=== PATIENT | male | born 1990 | race Caucasian/White ===

== ENCOUNTER 2025-03-06 16:10 | Emergency (ER) | payer OTHER, SELFPAY ==
--- NOTE | ~2025-03-06 | XR_ITS ---
HISTORY: 4th rt toe pain, swelling and bruising, kicked a box COMPARISON: None TECHNIQUE: 3 views of the right foot were performed FINDINGS: No acute fracture or dislocation is appreciated. No significant degenerative disease is noted. The base of the fifth metatarsal is intact. No calcaneal spur is noted. No significant soft tissue swelling is present. IMPRESSION: No acute fracture. Reviewed, dictated and finalized at location A. IMPRESSION: No acute fracture.
--- NOTE | 2025-03-06 16:11 | ED_ITS ---
HPI - Extremity Injury (Lower) General Stated Complaint: toe injury Time Seen by Provider: 03/06/25 16:11 Source: patient Mode of arrival: ambulatory Limitations: no limitations History of Present Illness HPI Narrative: Patient is a 34-year-old male who presents with right 4th toe pain after accidentally tripping on box of toys and kicking the top corner. Patient reports tenderness on palpation and bruising. Incident happened 2 nights ago. Patient still able ambulate with mild pain. Related Data Allergies Allergy/AdvReac Type Severity Reaction Status Date / Time No Known Allergies Allergy Verified 03/06/25 17:16 Review of Systems Review of Systems: All systems reviewed & are unremarkable except as noted in HPI and below Constitutional: Constitutional: Denies body ache(s), Denies chills, Denies fatigue, Denies fever(s), Denies headache(s), Denies malaise and Denies weakness Eyes: Eyes: Denies blurry vision, Denies irritation and Denies loss of vision ENT: Denies otalgia, Denies headache(s), Denies nasal discharge, Denies sinus pain and Denies sore throat Cardiovascular: Cardiovascular: Denies chest pain, Denies irregular heart rhythm and Denies dyspnea Respiratory: Respiratory: Denies dyspnea Gastrointestinal: Gastrointestinal: Denies abdominal pain, Denies melena, Denies hematochezia, Denies diarrhea, Denies nausea and Denies vomiting Musculoskeletal: Musculoskeletal: Denies back pain, Denies myalgias and Reports arthralgias Integumentary/Breasts: Skin/Breast: Denies pruritus and Denies rash Neurologic: Denies headache(s), Denies loss of vision and Denies weakness Psychiatric: Psychiatric: Reports no additional psychiatric complaints Endocrine: Endocrine: Denies fatigue PMFSH Comments At time of signature, agree with nursing past medical, surgical, social and family history. There is no relevant family history pertinent to the presenting complaint. Exam Const: General: cooperative, healthy appearing, comfortable, no acute distress and well nourished Nutritional Appearance: well nourished Orientation/consciousness: patient oriented x3 Limitations: no limitations HENMT: Head: normal to inspection, normocephalic and atraumatic Ears: hearing grossly normal bilaterally and external ears normal Face/Nose/Sinus: Normal external nose present, normal facial exam and face symmetric Face and sinus: normal facial exam and face symmetric Mouth: Yes lip normal Eyes: General: appearance normal, both eyes and all related structures Alignment and Position: alignment normal and position normal Periorbital: periorbital findings normal Eyelids: eyelids normal Pupils: Equal, round and reactive pupils present EOM: EOMs intact bilaterally Neck: Neck: normal visual inspection, full ROM and supple Chest: Chest palpation & inspection: normal inspection of the chest Resp: Effort & Inspection: normal respiratory effort and able to speak in complete sentences Auscultation: clear to auscultation bilaterally Cardio: Rate: regular rate Rhythm: regular rhythm Heart sounds: S1 normal heart sound present and S2 normal heart sound present GI: Inspection: normal to inspection Skin: General skin exam: normal color and no rashes or lesions noted Neuro: General: patient oriented x3 and moves all extremities Cranial nerves: Yes Equal, round and reactive pupils present Speech: normal speech Gait exam (Neuro): Normal gait present Extrem: General: normal to inspection, full ROM and no edema Right lower extremity: foot Details: normal capillary refill, tenderness Location: of another digit Location: the 4th digit and along the entire digit, toes with normal ROM, ecchymosis dorsal 4th toe Details: single, vascular exam Details: dorsalis pedis pulse present and normal capillary refill and tendon exam Details: active flexion normal Location: of all toes and active extension normal Location: of all toes Psych: Appearance: grossly normal and well kempt Mental Status: mental status grossly normal Speech and movement: Normal speech and movement present Affect: normal affect Attitude: cooperative Thought process: Normal thought process present Course Course Emergency Course: Patient is aware of diagnosis, understands and agrees to treatment plan. Anticipatory guidance given. Patient agrees to follow-up as directed and is aware of reasons to seek care at the emergency department. Portions of this record may have been created with voice recognition software Level of Care: Express Care Visit Vital Signs Vital signs: Reviewed MDM - Extremity Injury (Lower) MDM Narrative Medical decision making narrative: X-ray showed minutes fracture. Toe with ecchymosis but able to bend normally. Anthony-taped toe recommendations. Pt well hydrated appearing, in no respiratory distress, hemodynamically stable. Recommend supportive care. The patient is stable at time of discharge the clinical impression was discussed and the patient was given the opportunity to ask questions, which were addressed as completely as possible given the information available at present. Anticipatory guidance and return to care precautions were discussed and the importance of primary care follow-up was stressed and encouraged. The patient voiced understanding of the plan, indications to return, and the need for follow-up. Exam findings show no acute concerns or changes Patient is appropriate for outpatient treatment and follow-up. Differential Diagnosis Differential diagnosis: Likely fracture of toe and other (Toe strain, contusion) Imaging Data Radiologist's impression: HISTORY: 4th rt toe pain, swelling and bruising, kicked a box COMPARISON: None TECHNIQUE: 3 views of the right foot were performed FINDINGS: No acute fracture or dislocation is appreciated. No significant degenerative disease is noted. The base of the fifth metatarsal is intact. No calcaneal spur is noted. No significant soft tissue swelling is present. IMPRESSION: No acute fracture. Discharge Plan Discharge Clinical Impression: Contusion of toe of right foot Qualifiers: Encounter type: initial encounter Toe: lesser toe Damage to nail status: without damage Qualified Code(s): S90.121A - Contusion of right lesser toe(s) without damage to nail, initial encounter Patient Disposition: Home Condition: Stable Instructions: Foot Contusion (ED) Additional Instructions: Xray showed no fracture. Minimize activities that aggravate the condition The RICE protocol. Follow the RICE protocol as soon as possible after your injury: Rest your foot by not walking on it. Ice should be immediately applied to keep the swelling down. It can be used for 20 to 30 minutes, three or four times daily. Do not apply ice directly to your skin. Compression dressings, bandages or yessenia-wraps will immobilize and support your injured foot. Elevate your foot above the level of your heart as often as possible during the first 48 hours. Medication: Nonsteroidal anti-inflammatory drugs (NSAIDs) such as ibuprofen and naproxen can help control pain and swelling. Because they improve function by both reducing swelling and controlling pain, they are a better option for mild sprains than narcotic pain medicines. Please schedule a follow-up visit with your personal physician for further evaluation and treatment within 1week OR If your symptoms persist, change or worsen significantly before you can contact your personal physician then please, without delay, go to the emergency department for further evaluation. Your blood pressure was elevated above 120/80 today at Urgent Care. This puts you above the threshold for follow up visit with a primary care provider. High blood pressure does not usually cause any symptoms, however it may lead to kidney failure, stroke, heart disease just to name a few if untreated . Many people are anxious when seeing a provider or nurse. As a result, you are not diagnosed with hypertension at this time unless your blood pressure is persistently high at two office visits at least one week apart. Some things that can help lower blood pressure are lifestyle modifications, such as light exercise, decreased salt in diet, and weight loss. It is important to follow up with a PCP about this within 1 week. Patient Language: Persian Follow-up/Referrals: Sony Moise MD [Physician] - 3 Days ([facility] care) Stand Alone Forms: Work/School Release IP Time of Disposition: 17:18
[2025-03-06 16:20] VITALS: BP 151/86; PULSE 71; RESP 16; TEMP 36.3; O2SAT 99
--- OUTSIDE RECORDS SUMMARY | 2025-03-06 17:38 | XMS_ITS | Continuity of Care Document ---
Author Name [facility] Organization [facility] Care Team Providers Care Parts Administrator Name Role Phone [facility] Unavailable Unavailable Immunizations Combined list of available immunizations from the Department of Defense and Veterans Affairs facilities. Immunization Series Date Given Administered By Site Reaction Lot Number CVX Code Drug Cylinder Devalver Status Comments Source influenza, injectable, quadrivalent- pf 2020 [id number] 150 sanofi pasteur complet ed influenza , injectabl e, quadrival ent-pf 10/27/21 Given Ambulat ory Pharmac y influenza, injectable, quadrivalent- pf 2020 [id number] 150 Seqirus complet ed influenza , injectabl e, quadrival ent-pf 12/01/20 Given Ambulat ory Pharmac y typhoid Vi capsular polysaccharid e vac 2018 [id number] sanofi pasteur complet ed typhoid Vi capsular polysacch aride vac 07/30/19 Given Ambulat ory Pharmac y influenza, injectable, quadrivalent 2018 [id number] 158 Seqirus complet ed influenza , injectabl e, quadrival ent 07/30/19 Given Ambulat ory Pharmac y influenza, injectable, quadrivalent 2018 [id number] 158 Seqirus complet ed influenza , injectabl e, quadrival ent 01/01/19 Given Ambulat ory Pharmac y poliovirus vaccine, inactivated 2016 [id number] 10 sanofi pasteur complet ed polioviru s vaccine, inactivat ed 08/01/17 Given Ambulat ory Pharmac y influenza, injectable, quadrivalent- pf 2016 [id number] 150 GlaxoSmithKli ne complet ed influenza , injectabl e, quadrival ent-pf 08/01/17 Given Ambulat ory Pharmac y anthrax vaccine 2016 [id number] Emergent Biosolutions complet ed anthrax vaccine 06/27/17 Given Ambulat ory Pharmac y typhoid Vi capsular polysaccharid e vac 2016 [id number] sanofi pasteur complet ed typhoid Vi capsular polysacch aride vac 06/27/17 Given Ambulat ory Pharmac y influenza, seasonal, injectable-pf 2015 [id number] Seqirus complet ed influenza , seasonal, injectabl e-pf 09/15/16 Given Ambulat ory Pharmac y anthrax vaccine 2015 [id number] 24 Emergent Biosolutions complet ed anthrax vaccine 06/18/16 Given Ambulat ory Pharmac y influenza, live, intranasal,qu adrivalent 2014 [id number] Medimmune Inc comple t ed influenza , live, intranasa l,quadriv alent 09/30/15 Given Ambulat ory Pharmac y anthrax vaccine 2014 [id number] Emergent [employer] complet ed anthrax vaccine 12/06/14 Given Ambulat ory Pharmac y influenza, injectable, quadrivalent 2013 [id number] ID Biomedical comple t ed influenza , injectabl e, quadrival ent 10/28/14 Given Ambulat ory Pharmac y typhoid Vi capsular polysaccharid e vac 2013 [id number] sanofi pasteur complet ed typhoid Vi capsular polysacch aride vac 10/28/14 Given Ambulat ory Pharmac y influenza, live, intranasal,qu adrivalent 2012 [id number] 149 MediDealupa Inc comple t ed influenza , live, intranasa l,quadriv alent 09/24/13 Given Ambulat ory Pharmac y anthrax vaccine 2011 [id number] Emergent Biosolutions complet ed anthrax vaccine 11/04/12 Given Ambulat ory Pharmac y typhoid Vi capsular polysaccharid e vac 2011 [id number] sanofi pasteur complet ed typhoid Vi capsular polysacch aride vac 09/25/12 Given Ambulat ory Pharmac y vaccinia (smallpox) vaccine 2011 [id number] 75 Adherex Technologies complet ed vaccinia (smallpox ) vaccine 09/25/12 Given Ambulat ory Pharmac y anthrax vaccine 2011 [id number] Emergent Biosolutions complet ed anthrax vaccine 09/25/12 Given Ambulat ory Pharmac y influenza virus vaccine, live 2011 [id number] Medimmune Inc comple t ed influenza virus vaccine, live 09/11/12 Given Ambulat ory Pharmac y tetanus, diphtheria, acellular pertu is 2011 [id number] 115 sanofi pasteur complet ed tetanus, diphtheri a, acellular pertussis 06/26/12 Given Ambulat ory Pharmac y influenza virus vaccine, live 2010 [id number] 111 Medimmune Inc comple t ed influenza virus vaccine, live 08/24/11 Given Ambulat ory Pharmac y influenza virus vaccine, live 2009 [id number] 111 Medimmune Inc comple t ed influenza virus vaccine, live 09/28/10 Given Ambulat ory Pharmac y typhoid Vi capsular polysaccharid e vac 2009 [id number] 101 sanofi pasteur complet ed typhoid Vi capsular polysacch aride vac 03/24/10 Given Ambulat ory Pharmac y Novel influenza-H1N 1-09, injectable 2009 [id number] 127 Novartis Pharmaceutica ls complet ed Novel influenza -[id number], injectabl e 12/02/09 Given Ambulat ory Pharmac y influenza virus vaccine, live 2008 [id number] 111 Medimmune Inc comple t ed influenza virus vaccine, live 09/29/09 Given Ambulat ory Pharmac y influenza virus vaccine, live 2007 [id number] 111 Medimmune Inc comple t ed influenza virus vaccine, live 08/19/08 Given Ambulat ory Pharmac y hepatitis A adult vaccine 2007 [id number] 52 GlaxoSmithKli ne complet ed hepatitis A adult vaccine 06/25/08 Given Ambulat ory Pharmac y hepatitis A-hepatitis B vaccine 2007 [id number] 104 GlaxoSmithKli ne complet ed hepatitis A-hepatit is B vaccine 01/23/08 Given Ambulat ory Pharmac y typhoid Vi capsular polysaccharid e vac 2007 [id number] 101 sanofi pasteur complet ed typhoid Vi capsular polysacch aride vac 01/23/08 Given Ambulat ory Pharmac y influenza virus vaccine,split 2006 [id number] 15 GlaxoSmithKli ne complet ed influenza virus vaccine,s plit 10/02/07 Given Ambulat ory Pharmac y hepatitis A adult vaccine 2006 [id number] 9 [id number] 52 GlaxoSmithKli ne complet ed hepatitis A adult vaccine 05/05/07 Given Ambulat ory Pharmac y tuberculin purified protein derivative 2006 [id number] 96 sanofi pasteur complet ed tuberculi n purified protein derivativ e 04/30/07 Given Ambulat ory Pharmac y meningococcal polysaccharid e (MPSV4) 2006 [id number] 32 sanofi pasteur complet ed meningoco ccal polysacch aride (MPSV4) 04/30/07 Given Ambulat ory Pharmac y influenza virus vaccine,split 2006 [id number] 15 sanofi pasteur complet ed influenza virus vaccine,s plit 04/30/07 Given Ambulat ory Pharmac y tetanus-dipht h toxoids (Td) adult/adol 2006 [id number] 09 sanofi pasteur complet ed tetanus-d iphth toxoids (Td) adult/ado l 04/30/07 Given Ambulat ory Pharmac y poliovirus vaccine, inactivated 2006 [id number] 10 sanofi pasteur complet ed polioviru s vaccine, inactivat ed 04/30/07 Given Ambulat ory Pharmac y tetanus-dipht h toxoids (Td) adult/adol 2002 [id number] 09 complet ed tetanus-d iphth toxoids (Td) adult/ado l 06/19/03 Given Ambulat ory Pharmac y hepatitis B pediatric/ado lescent 1998 [id number] 08 GlaxoSmithKli ne complet ed hepatitis B pediatric /adolesce nt 02/25/99 Given Ambulat ory Pharmac y measles/mumps /rubella virus vaccine 1993 03 complet ed measles/m umps/rube lla virus vaccine 07/04/94 Given Ambulat ory Pharmac y poliovirus vaccine, live, oral 1993 02 complet ed polioviru s vaccine, live, oral 07/04/94 Given Ambulat ory Pharmac y diphtheria/te tanus toxoids/pertu is 1993 01 complet ed diphtheri a/tetanus toxoids/p ertussis 07/04/94 Given Ambulat ory Pharmac y poliovirus vaccine, live, oral 1989 02 complet ed polioviru s vaccine, live, oral 10/21/90 Given Ambulat ory Pharmac y diphtheria/te tanus toxoids/pertu is 1989 01 complet ed diphtheri a/tetanus toxoids/p ertussis 10/21/90 Given Ambulat ory Pharmac y Hib, unspecified formulation 1989 17 complet ed Hib, unspecifi ed formulati on 07/12/90 Given Ambulat ory Pharmac y measles/mumps /rubella virus vaccine 1989 03 complet ed measles/m umps/rube lla virus vaccine 07/12/90 Given Ambulat ory Pharmac y diphtheria/te tanus toxoids/pertu is 1988 complet ed diphtheri a/tetanus toxoids/p ertussis 89 Given Ambulat ory Pharmac y diphtheria/te tanus toxoids/pertu is 1988 complet ed diphtheri a/tetanus toxoids/p ertussis 89 Given Ambulat ory Pharmac y poliovirus vaccine, live, oral 1988 02 complet ed polioviru s vaccine, live, oral 89 Given Ambulat ory Pharmac y poliovirus vaccine, live, oral 1988 02 complet ed polioviru s vaccine, live, oral 89 Given Ambulat ory Pharmac y diphtheria/te tanus toxoids/pertu is 1988 complet ed diphtheri a/tetanus toxoids/p ertussis 89 Given Ambulat ory Pharmac y Results Combined list of recent chemistry, hematology and other laboratory results from Department of Defense and Veterans Affairs, ranging from 15 months to all on record, depending upon the facility. Order Name Results Value Reference Range Date Interpretation Specimen Comments Source Infectiou s Disease HIV-1/O/2 Non-Reac tive 1 (12/24/24 9:19 AM) 12/24 N Interpretiv e Data: INTERPRETAT ION: This method is a screening procedure for the detection of HIV p24 Antigen and Antibodies to HIV-1, including Group O, and/or HIV-2. NON-REACTIV E: HIV-1 antigen and HIV-1 / HIV-2 antibodies were not detected. No laboratory evidence of HIV infection. A negative test result does not exclude the possibility of exposure to or infection with HIV. HIV antibodies and/or p24 antigen may be undetectabl e in some stages of the infection and in some clinical conditions. If acute HIV infection is suspected, consider submitting another specimen to a reference laboratory for HIV-1 RNA. SCREEN REACTIVE - CONFIRMATIO N TO FOLLOW: Possible presence of HIV-1antibo dies, HIV-2 antibodies and/or HIV-1 p24 antigen. Specimen will reflex to the confirmatio n testing that fulfills the Center for Disease Control and Prevention' s HIV diagnostic algorithm. Refer to [facility] Lab Guide for additional information : [email or web address] x Testing performed by Dwain nair [address] [employer] EP[facility] Miscellan eous Sendouts Repository Sample Received (12/24/24 9:19 AM) 12/24 N [address] [employer] EP[facility] Encounters Combined list of: 1) Encounters from [facility] of [facility] facilities going backup to the last 18 months, not all [place] inpatient encounters are included; 2) Encounters from the Department of [facility] facilities going backup to 280 months. Location Location Details Encounter Type Encounter Number Reason For Visit Attending Provider ADM Date DC Date Status Disposition Source [id number] MDG Care Not Rendered [id number] 04/23 Discharge Disposition: Home or Self Care [id number] 26 MDG [id number] MDG Care Not Rendered [id number] 06/25 Discharge Disposition: Home or Self Care 8224R-1 26 MDG [id number] MDG Outpatient [id number] ERNESTINE BRONSONCARLA 12/13 Discharge Disposition: Home or Self Care 8224R-1 26 MDG [id number] MDG Outpatient [id number] ERNESTINE BRONSONCARLA 12/24 Discharge Disposition: Home or Self Care 8224R-1 26 MDG 8224R-126 MDG Clinic [id number] ERNESTINE BRONSONCARLA 02/06 Discharge Disposition: Home or Self Care [id number] 26 MDG Procedures Combined list of: 1) Procedures from Department of Veterans Affairs facilities going back up to thelast 18 months, not all [place] non-surgical procedures are included; 2) All procedures from the Department of [facility] facilities. Procedure Procedure Type Code Date Perfomer Comments Sourc e No data available for this section Ambulatory P harmacy Social History Combined list of available smoking, tobacco, and other social history from Department of Defense and Veterans Affairs facilities. Social History Type Response Date Comment Sour e Sex Representation Male (finding) 02/28/2022 Un known Organization Sexual Orientation Ambula tory Pharmacy Gender identity Ambulator y Pharmacy Assessment and Plan Combined list of future care activities from Department of Defense and Veterans Affairs facilities (e.g., assessment and plan notes, appointments, orders, and referrals). Additional future care activities may be listed in the Plan of Care section. 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 Patient s PHAQ responses suggest Routine i tems requiring action. Retention Waiver: No Profile: No Medications: N one reported or found Medication List Active Medications No Active Medications Found Medications Inactivated in the Last 72 Hours No medications found. 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 NO Completed on 01/24/2025 VA Disability Rating: No If, Yes please update below. 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 Member has nothing more to report. Report complete. PHAQ ready for PCM review and signature. 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 Patient s PHAQ responses suggest Priority items requiring immediate action. Karen figueroa stated he had vision changes but did not get treatment. Retention Waiver: N o Profile: N o Medications: Medication List Active Medications No Active Medications Found Medications Inactivated in the Last 72 Hours No medications found. 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 Y es VA Disability Rating: _ I f, Yes please update below. 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 Member is due to complete MHA. Member endorsed PRIORITY for changes in vision. Member is now being seen and treated for recurring muscle, joint, or low back pain. Member reports no surgeries since last PHA. Member denies any allergies and does not wear any corrective lenses. Member denies taking any prescription or OTC medications. Member endorses drinking alcohol 4 or more times per week, drinking 1-2 drinks per day. Member endorses good health with pain listed at 2/10 on pain scale but is not receiving any treatment for pain. Member endorses getting insurance healthcare representative for his back pain. No other concerns listed. Member scheduled for PRIORITY PHA review on 03/09/2024 at 1PM. PHAQ ready for PCM review and signature. Signature Line Electronically Signed on: 02/03/2024 15:57 CDT Rehana Quintanilla Addendum by ERNESTINE QUILES on March 09, 2024 15:36 CDT PHAQ Completed in [facility], [id number] c opied below. Diagnosis is [id number] Medication reconciliation was accomplished. IMR requirements checked in [facility] (all GREEN). Red on the audio General silvina matthew performed i n chart review. Denies SI/HI. All questions answered. Member has no n on emergent positive responses on P LUNA. I t has not inhibited member from performing their duties. Member is assumed fit for duty. Denies any other acute or chronic health concerns currently. Mental health resources to include the mental health clinic, OP, Director Regulatory Agency, and One Source discussed with patient v ia review. Recommend f/u with PCM for any new or ongoing m edical concerns. Member can: 1) deploy 2) perform the duties of the assigned [employer], 3) meet retention medical standards, 4) complete the fitness assessment (FA), X08.8- A ir contaminants exposure i n past d eployment(s).Member has been exposed to but not limited to poor air quality, dust, mold, animal excrement. Member is not symptomatic currently but may have issues in the future. COPY OF PHAQ2 [id number]: A NNUAL PERIODIC HEALTH ASSESSMENT I. 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 Last Name: MARILIA 2. First Name: DORIAN 3. Middle Name: FABY 4. Assessment Date: 5. : 6. Age: 33 7. Gender: M 8. [employer] ID Number: [id number] 9. Service Branch: [employer] 10. 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 Duty Station/Location: [place] 15. UIC: [id number] 16. Is this your first Periodic Health Assessment (PHA)?: N 17. Are you enrolled in a secure messaging system with your health care provider?: 18. Current contact information: Preferred Method: Email 1 DSN: [id number] Day Time Phone: [phone] Night Time Phone: [phone] Email 1: [email or web address] Email 2: [email or web address] Address: [address] [place]: [facility] State: [place] Zip Code: [address] 19. Point of contact who can always reach you: Name: Rosemarie Marilia Phone 1: [phone] Phone 2: EMAIL: [email or web address] Address: [address] [place]: [place]: [place] Zip Code: [address] II. DEPLOYMENT INFORMATION (DEP) 1. [ 1 ] Total number of deployments in the PAST 5 YEARS 2. [ [place] ] Primary country of last deployment 3. [ ] Date departed theater 4. [ N ] Are you going to deploy within the NEXT 120 DAYS? III. 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 [ No ] Does your specialty require an operational duty physical exam? 4. [ Yes ] Are you currently enrolled in a medical surveillance/occupational health program?: Yes IV. MEDICAL CONDITIONS (SON): 1. Since your last PHA, have you experienced any of the following health conditions, and if so, what is your status? [ Change in vision ] Conditions with no medical care [ ] Conditions with medical care, but no longer under treatment [ ] Conditions with medical care, and NOW under treatment 2. Since your last PHA, have you experienced any of the following health conditions, and if so, what is your status? [ ] Conditions with no medical care [ ] Conditions with medical care, but no longer under treatment [ Recurring muscle, joint, or low back pain ] Conditions with medical care, and NOW under treatment 3. For any condition marked YES in question 1 or 2, are you currently on any profile or limited duty for that condition? [ ] Conditions 4. [ No ] Have you been based or stationed at a location where an open burn pit was used? 5. [ No ] Have you been exposed to toxic airborne chemicals or other airborne contaminants? 8. Have you had any surgery since your last PHA?: No 10.a. [ No ] Since your last PHA, has a health care provider recommended surgery(s) that you have not had? 11.a. [ No ] Do you currently require hearing aids, special medical supplies, CPAP, adaptive equipment, assistive technology devices, and/or other special accommodations? 12.a. [ No ] Do you have a waiver or profile for any part of your Service's physical fitness test? 13.a. [ No ] Do you have any problems wearing a gas mask, ballistic helmet, body armor, and/or chemical/biological protective garments? 14.a. [ No ] Have you ever been told by a health care provider that you SHOULD NOT receive an immunization for medical reasons? 15.a. [ No ] Do you have a permanent profile or an Assignment Limitation Code C? 16.a. [ No ] Are you on a temporary profile or limited duty? 17. [ 0 ] During the PAST 2 years, how many times have you been placed on a temporary profile or on limited duty? V. INDIVIDUAL MEDICAL READINESS (IMR) 1. [ No ] Do you have any allergies? 3. [ Not required ] Do you have red medical warning dog tags? 4. [ No ] Do you wear corrective lenses? . BEHAVIORAL HEALTH (MHA) 1. a. [ None ] Over the PAST MONTH, what major life stressors have you experienced that are a cause of significant concern or make it difficult for you to do your work, take care of things at home, or get along with other people (for example, serious conflicts with others, relationship problems, or a legal, disciplinary or financial problem)? 2. a. [ No ] In the PAST YEAR did you receive care for any mental health condition or concern such as, but not limited to post traumatic stress disorder (PTSD), depression, anxiety disorder, alcohol abuse or substance abuse? 3. [ None ] What prescription or over-the counter medications (including herbals/supplements) for sleep, pain, combat stress, or a mental health problem are you CURRENTLY taking? 4. a. [ No ] In the past 12 months, have you gambled? 5. a. [ 4 or more times a week ] How often do you have a drink containing alcohol? 5. b. [ 1 or 2 ] How many drinks containing alcohol do you have on a typical day when you are drinking? 5. c. [ Less than monthly ] How often do you have six or more drinks on one occasion? 6. Have you ever had any experience that was so frightening, horrible, or upsetting that in the PAST MONTH, you: 6. a. [ No ] Have had nightmares about it or thought about it when you did not want to? 6. b. [ No ] Tried hard not to think about it or went out of your way to avoid situations that remind you of it? 6. c. [ No ] Were constantly on guard, watchful or easily startled? 6. d. [ No ] Ulysses numb or detached from others, activities, or your surroundings? 6. e. [ Not answered ] Ulysses guilt or unable to stop blaming yourself or others for the event(s) or any problems the event(s) may have caused? 7. Over the LAST 2 WEEKS, how often have you been bothered by the following problems? 7. a. [ Not at all ] Little interest or pleasure in doing things 7. b. [ Not at all ] Feeling down, depressed, or hopeless 8. [ No ] Would you like to schedule an appointment with a health care provider to discuss any health concern(s)? 9. [ No ] Are you interested in receiving information or assistance for a stress, emotional or alcohol concern? 10. [ No ] Are you interested in receiving assistance for a family or relationship concern? 11. [ No ] Would you like to schedule a visit with a balance staff inspector, mental health care provider, or a community support counselor? VII. FAMILY HISTORY AND LIFESTYLE (LIF) 1. [ Good ] Overall, how would you rate your health during the PAST MONTH? 2. [ None/Don't Know ] Member indicates that family members have the following problems 6. [ No ] I participate in moderate intensity physical activites at least 2.5 hours, or a combination of moderate and vigorous aerobic activites, for at least 75 minutes per week. 7. In a typical week, I do physical activities specifically designed to STRENGTHEN my muscles: [ 0 ] Day(s) per week 8. [ None ] What prescriptions or guvq-zsj-bboeyqa medications are you CURRENTLY taking for health problems on a ROUTINE BASIS? 9. Which of the following products have you taken since your last PHA: None of the above 11. Think about the PAST 30 DAYS. How often did you eat/drink the following foods/beverages? [ 1 serving per day ] Fruits [ 2 servings per day ] Vegetables [ 1 serving per day ] Starchy Vegetables [ 1 serving per day ] Whole Grains [ 3 to 6 servings per week ] Dairy and Calcium Containing Foods [ 1 or 2 servings per week ] Fish [ 1 serving per day ] Lean Protein [ 1 or 2 servings per week ] Sugar-Sweetened Beverages 12. [ No ] Have you had a cholesterol check by a health emergency care attendant within the PAST 5 YEARS? 13.a. In the PAST 30 DAYS, which of the following products have you used on at least one day? None 15. Which of the following best describes your past tobacco use? I used tobacco in the past, but quit in 2015 16. [ No ] Are you regularly exposed to secondhand smoke? 17. [ 5 to less than 7 hours ] During the LAST 2 WEEKS, how many hours of sleep did you get on most days? 18. [ No ] During the LAST 2 WEEKS, have you felt impaired or unable to adequately perform due to sleepiness or poor quality sleep? 19. [ No ] Have you had any unexplained weight loss or gain since your last PHA? 20. Member is not at risk for sexually transmitted infections. 22. Since your last PHA, what, if anything, have you and your partner used to keep from getting ? [ My partner(s) or I do not use any contraception. ] I am not actively taking steps to prevent as 23. [ No ] In the last year, have you or your partner had a scare, where you were not trying to get but were worried enough to use a home test? IX. RESERVE COMPONENT (RES) 1. [ No ] Do you have an injury, illness, Or disease which was incurred or aggravated while in a duty status since your last PHA? 4. [ Yes - Other health insurance ] Are you currently coverered under a health insurance policy? 5.a. [No, I have never applied for Worker's Compensation ] Do you have any current physical or mental health limitations related to a Worker's Compensation claim? 6. [ No ] Have you applied for or have you received a VA disability rating? X. OTHER MEDICAL (OTH) 1. [ 2 ] Rate the amount of pain you have had, on average, over the PAST 24 HOURS 2. [ No ] Are you receiving treatment for pain? 3. [ Yes ] Since your last PHA, have you received care or treatment for any medical and/or mental health condition(s) from a civilian or non- facility? 4. List the condition(s) treated and where the care was provided: Conditions: back pain Where: Chiropractic 5. Member acknowledged responsibility for reporting health issues. 7. [ No ] Woud you like to schedule an appointment with a health care provider to discuss any health concerns? XI. SEPARATION AND GROUP HOME 1. 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 PART B. RECORD REVIEW AND RECOMMENDATIONS I. RECORD REVIEWER INFORMATION 1. Last Name: IMELDA 2. First Name: REHANA 3. Middle Name: Mimi 4. Service Branch: [employer] 5. 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 EMAIL: [email or web address] 8. Facility: [facility] 9. Unit: [address] 10. Address: [address] [place] [address]. State: [place] 12. Zip Code: [address] 13. 14. Date Record Review: II. MEDICAL SCREENING 1. [ ] Date of body team member's most recent PHA 2. [ 5 feet 11 inches Date: ] body team member's most recently documented height 3. [ 247 pounds Date: ] body team member's most recently documented weight 4. [ 123/71 Date: ] body team member's most recently documented blood pressure reading 5. [ No ] Does the body team member have a history of abnormal blood pressure since their last PHA? 6. [ Yes ] Does the body team member have a laboratory test of sickle cell trait documented in their permanent medical record? 7. [ ] What is the date of the body team member's most recently documented cholesterol test? 9. [ No Active Medications Documented ] List of body team member's active medications listed in their permanent medical record 10. [ No ] Is there a discrepancy between the active medication record review and the body team member's self-reported list of medications? 11. [ Chiropractic for Back pain ] List documented significant care the body team member has received since their last PHA from a provider OUTSIDE the Health System 12. [ No ] Is there a discrepancy between the body team member's list of OUTSIDE care (from OT[facility]), and the OUTSIDE care found in the record? 13. [ No Inside Care Documented ] List documented significant care the body team member has received since their last PHA from a provider INSIDE the Health System 15. [ Not Answered ] Confirm that vaccine exemptions are listed in the medical record for each vaccine listed III. OCCUPATION-SPECIFIC EXAMINATIONS 2. [ ] When was the body team member's most recently documented evaluation? IV. FAMILY HISTORY AND LIFESTYLE 1. [ Yes ] Does the [id number] reflect the body team member's reported family history? . DEPLOYMENT-RELATED HEALTH ASSESSMENTS 1. [ No ] Based on your check of records, does the body team member have any due or overdue deployment health assessments which need to be completed with this PHA? VII. INDIVIDUAL MEDICAL READINESS 1. [ No ] Does the body team member have an Assignment Limitation Code C? 3. [ Classification: 1 ] Most recently documented dental exam 4. [ Yes ] Is the body team member current on all required immunizations in the immunization tracking system? 6. Does the body team member have the following laboratory tests documented in their permanent medical record? [ Yes ] HIV test within the PAST 24 months [ Yes ] G6PD results on file [ Yes ] Blood type and Rh on file [ Yes ] DNA test on file IX. ADDITIONAL RECORD REVIEWER COMMENTS 1. This record review does NOT have a need for provider notification or referral.2. Additional comments about this record review that need to be forwarded to the [employer] completing PART C: PRIORITY PHAQ Review completed. Member is due to complete MHA. Member endorsed PRIORITY for changes in vision. Member is now being seen and treated for recurring muscle, joint, or low back pain. Member reports no surgeries since last PHA. Member denies any allergies and does not wear any corrective lenses. Member denies taking any prescription or OTC medications. Member endorses drinking alcohol 4 or more times per week, drinking 1-2 drinks per day. See notes in MHA Juany. Date Record Review Completed: PART C. HEALTH CARE PROVIDER I. MENTAL HEALTH ASSESSMENT (MHA) PROVIDER INFORMATION 1. Last Name: KB 2. First Name: ERNESTINE 3. Middle Name: Tim 4. Service Branch: [employer] 5. Status: Traditional [facility] 6. 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 EMAIL: [email or web address] 8. Facility: [address] [facility] 9. Unit: [address] [facility] 10. Address: [address] [place] [address] 11. State: [place] 12. Zip Code: [address] 13. Phone: [phone] 14. Date HCP Review initiated: 1. Member marked that they did not have a concern or a difficulty with a major life stressor. 2. Address concerns identified on member questions 2 and 3. History of mental health care: N/A Member's response: Provider's comments: Medications: N/A Member's response: Provider's comments: 3. Member's AUDIT-C screening score was 5. Number of drinks per week: 7 Maximum number of drinks per occasion: 2 Referral is not indicated because there is no significant impairment. 4. Member did not prem yes on two or more of questions 6a through 6e. 5. Member did not prem More than half the days or nearly every day on question 7a or 7b. 6. Suicide risk evaluation. 6. a. Ask: Over the past month, have you wished you were or wished you could go to sleep and not wake up?: No 6. b. Ask: Have you actually had any thoughts of killing yourself?: No 6. f. 1. Ask: In you lifetime, have you done anything, started to do anything, or prepared to do anything to end your life?: No 6. g. Further risk assessment comments: 7. Member states that they have not had thoughts or concerns over the past month that they might hurt or lose control with someone. 9. Summary of Provider's identified concerns needing referrals: None 11. Comments: 13. Supplemental services recommended/information provided: No supplemental services required Date MHA Certified: III. PERIODIC HEALTH ASSESSMENT (PHA) PROVIDER INFORMATION 1. Last Name: KB 2. First Name: ERNESTINE 3. Middle Name: Tim 4. Service Branch: [employer] 5. Status: Traditional [facility] 6. Title: Physician (, ) 7. EMAIL: [email or web address] 8. Facility: [address] [facility] 9. Unit: [address] [facility] 10. Address: [address] [place] [address] 11. State: [place] 12. Zip Code: [address] 13. Phone: [phone] 14. Date HCP Review initiated: IV. PERIODIC HEALTH ASSESSMENT PROVIDER RECOMMENDATIONS and REFERRALS 1. Provider concerns with this assessment: No issues or concerns identified V. SUMMARY AND COMMENTS 1. Additional information summarizing findings during the body team member assessment: 2. Provider Comments: He brought a stack of Xray films of the spine from the [place] . INDIVIDUAL MEDICAL READINESS DISPOSITION DETERMINATION SON: Ready DEN: Ready IMM: Ready LAB: Ready ME: Ready IMR Status: Fully Medically Ready VII. SERVICE MEDICAL DEPLOYABILITY EVALUATION INDICATED Based on your review of all documentation, is the body team member medically deployable without limitations? Reference [facility] 6490.07 Yes (body team member DOES NOT currently have a medical condition that limits deployability) Date PHA Completed: END OF [id number] REPORT PROVIDER: Ernestine Quiles [facility], SFS Chief, Aerospace Medicine, [employer] [employer] Email: 1 [email or web address] COMM: [phone] DSN:[id number] FAX: [phone] Jaden also brought the actual (old school) X-ray films of his L-sine and C-spine dating to 2015. There were 15 films. The L-spines were AP views. The films are way underpenetrated but I see no fractures or compression. C-spine also limited and underpenetrated but shows good alignment and no fractures. 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 Patient s PHAQ responses suggest Priority items requiring immediate action. Karen figueroa stated he had vision changes but did not get treatment. Retention Waiver: N o Profile: N o Medications: Medication List Active Medications No Active Medications Found Medications Inactivated in the Last 72 Hours No medications found. 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 _ VA Disability Rating: _ I f, Yes please update below. 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 Member is due to complete MHA. Member endorsed PRIORITY for changes in vision. Member is now being seen and treated for recurring muscle, joint, or low back pain. Member reports no surgeries since last PHA. Member denies any allergies and does not wear any corrective lenses. Member denies taking any prescription or OTC medications. Member endorses drinking alcohol 4 or more times per week, drinking 1-2 drinks per day. Member endorses good health with pain listed at 2/10 on pain scale but is not receiving any treatment for pain. Member endorses getting insurance healthcare representative for his back pain. No other concerns listed. Member scheduled for PRIORITY PHA review on 03/09/2024 at 1PM. PHAQ ready for [facility] review and signature. 03/06/2025 [id number] Functional Status Combined list of recent functional and cognitive assessments recorded at Department of Defense and Veterans Affairs (VA).VA Functional [place] Measurement (FIM) Scale: 1 = Total Assistance (Subject = 0% +), 2 = Maximal Assistance (Subject = 25% +), 3 = Moderate Assistance (Subject = 50% +), 4 = Minimal Assistance (Subject = 75% +), 5 = Supervision, 6 = Modified [place] (Device), 7 = Complete [place] (Timely, Safely). Assessment Date/Time Source Assessment Type Assessment Skill Assessment Score Assessment Details No data available for this section
--- OUTSIDE RECORDS SUMMARY | 2025-03-06 17:38 | XMS_ITS | Clinical Summary ---
Author Organization [facility] Care Team Providers Care Senior Business Development Manager Name Role Phone Unavailable Primary Care Provider Unavailabl e Social History Tobacco Use Types Packs/Day Years Used Date Smoking Tobacco: Never Assessed Sex and Gender Information Value Date Recorded Sex Assigned at Not on file Legal Sex Male 10:16 AM [employer]AST[employer] MATE Gender Identity Not on file Sexual Orientation Not on file Plan of Treatment Health Maintenance Due Date Last Done Comments Hepatitis C Virus (HCV) Screening 1989 TdaP Immunization 1989 Hepatitis B Immunization (1 of 3 - 19+ 3-dose series) 2008 Influenza Immunization (#1) 2024 SARS-COV-2 Immunization ( - 2023- season) 2024 Respiratory Syncytial Virus (RSV) Immunization (Adult) (1 - 1-dose 75+ series) 2064 Meningococcal Immunization (ACWY) Aged Out No longer eligible based on patient's age to complete this topic Pneumococcal Immunization Combined Aged Out No longer eligible based on patient's age to complete this topic Rotavirus Immunization Aged Out No lo nger eligible based on patient's age to complete this topic
== END 2025-03-06 17:23 | disposition home or self-care (01) ==
PROVIDERS: Emergency Provider Nurse Practitioner Family; Referring Provider Emergency Medicine
DX: S90.121A Contusion of right lesser toe(s) without damage to nail, initial encounter (principal); W22.8XXA Striking against or struck by other objects, initial encounter
CPT/HCPCS: 73630; 99203; G0463